=== PATIENT | male | born 1985 | race Caucasian/White ===

== ENCOUNTER 2019-11-14 03:18 | Emergency (ER) | payer OTHER ==
[~2019-11-14] VITALS: Ht 177.8 cm; Wt 113.4 kg
[2019-11-14 03:29] VITALS: BP 119/76
--- NOTE | 2019-11-14 03:30 | NUR ---
PT TAKEN TO ROOM 6 VIA [facility]LL.
--- NOTE | 2019-11-14 03:40 | NUR ---
PT 34 Y/O MALE BIBA FOR C/O N/V, BLURRED VISION, AND FORD W/ /10 PAIN S/P DRUG AND ALCOHOL INGESTION. PT ALERT AND ORIENTED TO PERSON AND PLACE. PT RESPIRATIONS ARE EVEN AND UNLABORED. SKIN IS WARM AND DRY TO TOUCH. PT STATES, "I COULD FEEL MY HEART IN MY CHEST WHEN I SMOKED THE WEED AND MY VISION GOT CLOUDY. I DON'T KNOW IF THE DRUGS WERE LACED." PT RESTING IN BED EYES CLOSED. BED IN LOWEST POSITION, AND LOCKED IN PLACE. 1 SIDE RAIL UP. MED HX: NONE ALLERGIES: NONE.
--- NOTE | 2019-11-14 03:45 | NUR ---
DR. JEFFERSON AT BEDSIDE.
--- NOTE | 2019-11-14 03:55 | NUR ---
VISUAL ACUITY PERFORMED ON PT. LT EYE 20/25, RT EYE 20/25
[2019-11-14 04:07] VITALS: BP 119/76
--- NOTE | 2019-11-14 04:07 | NUR ---
Patient discharged with v/s stable. Written and verbal after care instructions given and explained. Patient verbalized understanding. Ambulatory with steady gait. All questions addressed prior to discharge. Advised to follow up with PMD.
== END 2019-11-14 04:07 | disposition home or self-care (01) ==
LOC: MED 03:18
DX: F12.10 Cannabis abuse, uncomplicated (principal); F17.200 Nicotine dependence, unspecified, uncomplicated
CPT/HCPCS: 99283

== ENCOUNTER 2019-11-24 08:33 | Emergency (ER) | payer OTHER ==
[~2019-11-24] VITALS: Ht 177.8 cm; Wt 122.5 kg
--- NOTE | 2019-11-24 08:36 | NUR ---
PT BIB [facility] TO ER BED 7
[2019-11-24 08:44] VITALS: BP 166/98
--- NOTE | 2019-11-24 08:50 | NUR ---
BIBA with feeling of tingling sensation on face and feeling of increase hr post intake of sertaline tab. dx case of PPSD , meds taken such gabapentin, hydralazine , omeprazole, thiamine , prazosin,acetamenophen prn for pain, pt is awake ,alert , afebrile ,denies dizziness,n/v ,pain at 4/10 headache.
--- NOTE | 2019-11-24 08:56 | NUR ---
dr thibodeaux at bedside evaluating pt.
[2019-11-24] MEDS ORDERED: LORazepam 1 MG TAB PO ONE (09:05)
[2019-11-24 09:46] VITALS: BP 124/84
--- NOTE | 2019-11-24 09:46 | NUR ---
Patient discharged with v/s stable. Written and verbal after care instructions given and explained regarding anxiety. Patient alert, oriented and verbalized understanding of instructions. Ambulatory with steady gait. All questions addressed prior to discharge. ID band removed. Patient advised to follow up with PMD. Rx of xanax given. Patient educated on indication of medication including possible reaction and side effects. Opportunity to ask questions provided and answered.
== END 2019-11-24 09:46 | disposition home or self-care (01) ==
LOC: MED 08:33
DX: F41.9 Anxiety disorder, unspecified (principal); F32.9 Major depressive disorder, single episode, unspecified; F17.200 Nicotine dependence, unspecified, uncomplicated; F12.90 Cannabis use, unspecified, uncomplicated; Z98.890 Other specified postprocedural states
CPT/HCPCS: 99284

== ENCOUNTER 2019-12-10 21:08 | Emergency (ER) | payer OTHER ==
[~2019-12-10] VITALS: Ht 177.8 cm; Wt 122.5 kg
[2019-12-10 21:30] VITALS: BP 141/73
--- NOTE | 2019-12-10 21:33 | NUR ---
TO LOBBY A/W BED AMBULATORY
--- NOTE | 2019-12-10 22:30 | NUR ---
34 Y/O MALE ANXIETY ATTACK,SOB, ETOH FOR SEVERAL DAYS. BREATHING UNLABORED AND SYMMETRICAL. ERMD MADE AWARE OF STATUS. SIDE RAILSX1. WILL CONTINUE TO MONIOTR. VSS. PMH:DEPRESSION;ANXIETY RX:DENIES NKDA
--- NOTE | 2019-12-10 23:14 | NUR ---
PT AMBULATED TO BED 5
[2019-12-10] MEDS ORDERED: LORazepam 1 MG TAB PO ONE (23:30)
[2019-12-10 23:36] LABS: BASOPHILS # (AUTO) 0.1 K/uL (0.00-0.22); BASOPHILS % (AUTO) 0.7 % (0.0-2.0); EOSINOPHILS # (AUTO) 0.3 K/uL (0-0.4); EOSINOPHILS % (AUTO) 3.5 % (0.0-4.0); HEMATOCRIT 49.4 % (36-52); LYMPHOCYTES # (AUTO) 2.3 K/uL (2.0-11.5); LYMPHOCYTES % (AUTO) 31.1 % (20.5-51.1); MEAN CORPUSCULAR HEMOGLOBIN 30 pg (27-31); MEAN CORPUSCULAR HGB CONC 34 g/dL (33-37); MEAN CORPUSCULAR VOLUME 87.7 fL (80-94); MONOCYTES # (AUTO) 0.5 K/uL (0.8-1.0); MONOCYTES % (AUTO) 6.6 % (1.7-9.3); NEUTROPHILS # (AUTO) 4.3 K/uL (1.8-7.7); NEUTROPHILS % (AUTO) 58.1 % (42.2-75.2); PLATELET COUNT (AUTO) 233 K/uL (140-450); RED BLOOD CELL COUNT(AUTO) 5.63 MIL/uL (4.20-6.10); RED CELL DISTRIBUTION WIDTH 13.4 % (11.6-13.7); WHITE BLOOD COUNT (AUTO) 7.3 K/uL (4.8-10.8)
[2019-12-10 23:54] LABS: ALBUMIN 4.2 g/dL (3.4-5.0); ANION GAP 20.6 (8-16); CARBON DIOXIDE 21.7 mmol/L (21-32); CREATININE 0.8 mg/dL (0.7-1.3); POTASSIUM 3.3 mmol/L (3.5-5.1); TOTAL BILIRUBIN 0.8 mg/dL (0.0-1.0)
[2019-12-11] MEDS ORDERED: FOLIC ACID 1 MG TAB PO ONE (00:25)
[2019-12-11] MEDS ORDERED: THIAMINE 200 MG/2 ML VIAL IM ONE (00:25)
[2019-12-11] MEDS ORDERED: NACL 0.9% 1,000 ML IV ONE (00:25)
[2019-12-11] MEDS ORDERED: POTASSIUM CHLORIDE 10 MEQ TABER PO ONE (00:25)
[2019-12-11] MEDS ORDERED: LORazepam 2 MG/ML VIAL IVP ONE (01:25)
--- NOTE | 2019-12-11 01:26 | NUR ---
PULLED ATIVAN 2ML; WASTED 1ML WITH SALINA VELASCO. ADMINISTERED 1ML ATIVAN TO PATIENT.
[2019-12-11 02:10] VITALS: BP 130/69
--- NOTE | 2019-12-11 02:10 | NUR ---
Patient discharged with v/s stable. Written and verbal after care instructions given and explained. Patient alert, oriented and verbalized understanding of instructions. Ambulatory with steady gait. All questions addressed prior to discharge. ID band removed. Patient advised to follow up with PMD. Rx of HYDROXYZINE given. Patient educated on indication of medication including possible reaction and side effects. Opportunity to ask questions provided and answered.
[2019-12-11 02:20] LABS: BARBITURATE, URINE NEG. ng/ml (NEG <=200); BENZODIAZEPINE, URINE NEG. ng/mL (NEG <=200); CANNABINOID, URINE POS. ng/mL (NEG <=50); COCAINE, URINE NEG. ng/mL (NEG <=300); OPIATE, URINE NEG. ng/mL (NEG <=2000); PHENCYCLIDINE SCREEN,URINE NEG. ng/mL (NEG <=25)
== END 2019-12-11 02:10 | disposition home or self-care (01) ==
LOC: MED 21:08
DX: F41.9 Anxiety disorder, unspecified (principal); F10.10 Alcohol abuse, uncomplicated; E87.6 Hypokalemia; Z71.6 Tobacco abuse counseling; Y90.4 Blood alcohol level of 80-99 mg/100 ml
CPT/HCPCS: 36415; 80053; 80305; 85025; 96374; 96375; 99284; G0482; J2060; J3411; J7030